=== PATIENT | male | born 1980 | race Asian ===

== ENCOUNTER 2023-01-19 16:10 | Outpatient (CLI) | payer OTHER ==
[2023-01-19 16:47] LABS: BASOPHILS % (AUTO) 0.9 % (0.0-2.0); EOSINOPHILS # (AUTO) 0.1 K/uL (0-0.4); EOSINOPHILS % (AUTO) 1.9 % (0.0-4.0); HEMATOCRIT 47.1 % (36-52); HEMOGLOBIN 15.9 g/dL (12.0-18.0); LYMPHOCYTES # (AUTO) 1.2 K/uL (2.0-11.5); LYMPHOCYTES % (AUTO) 27.3 % (20.5-51.1); MEAN CORPUSCULAR HEMOGLOBIN 31 pg (27-31); MEAN CORPUSCULAR HGB CONC 34 g/dL (33-37); MONOCYTES # (AUTO) 0.3 K/uL (0.8-1.0); MONOCYTES % (AUTO) 6.6 % (1.7-9.3); NEUTROPHILS # (AUTO) 2.7 K/uL (1.8-7.7); NEUTROPHILS % (AUTO) 63.3 % (42.2-75.2); PLATELET COUNT (AUTO) 192 K/uL (140-450); RED BLOOD CELL COUNT(AUTO) 5.06 MIL/uL (4.20-6.10); RED CELL DISTRIBUTION WIDTH 13.4 % (11.6-13.7); WHITE BLOOD COUNT (AUTO) 4.3 K/uL (4.8-10.8)
[2023-01-19 17:12] LABS: ALBUMIN 4.3 g/dL (3.4-5.0); ANION GAP 11.1 (8-16); CARBON DIOXIDE 29.9 mmol/L (21-32); CHOL/HDL RATIO 2.8 (1-4.5); CREATININE 0.9 mg/dL (0.6-1.3); TOTAL BILIRUBIN 1.3 mg/dL (0.0-1.0)
== END 2023-01-19 21:00 | disposition home or self-care (01) ==
LOC: MLB 16:10
PROVIDERS: ATTEND Family Medicine
DX: Z00.00 Encounter for general adult medical examination without abnormal findings (principal)
CPT/HCPCS: 36415; 80053; 82306; 84443; 85025

== ENCOUNTER 2023-05-04 15:26 | Outpatient (CLI) | payer OTHER ==
[2023-05-04 16:01] LABS: BASOPHILS # (AUTO) 0.1 K/uL (0.00-0.22); BASOPHILS % (AUTO) 1.1 % (0.0-2.0); EOSINOPHILS # (AUTO) 0.1 K/uL (0-0.4); EOSINOPHILS % (AUTO) 2.4 % (0.0-4.0); HEMATOCRIT 47.2 % (36-52); HEMOGLOBIN 15.7 g/dL (12.0-18.0); LYMPHOCYTES # (AUTO) 1.6 K/uL (2.0-11.5); LYMPHOCYTES % (AUTO) 31.6 % (20.5-51.1); MEAN CORPUSCULAR HEMOGLOBIN 31 pg (27-31); MEAN CORPUSCULAR HGB CONC 33 g/dL (33-37); MONOCYTES # (AUTO) 0.4 K/uL (0.8-1.0); MONOCYTES % (AUTO) 7.3 % (1.7-9.3); NEUTROPHILS % (AUTO) 57.6 % (42.2-75.2); PLATELET COUNT (AUTO) 207 K/uL (140-450); RED BLOOD CELL COUNT(AUTO) 5.02 MIL/uL (4.20-6.10); RED CELL DISTRIBUTION WIDTH 13.3 % (11.6-13.7); WHITE BLOOD COUNT (AUTO) 5.2 K/uL (4.8-10.8)
[2023-05-04 16:22] LABS: ALBUMIN 4.4 g/dL (3.4-5.0); ANION GAP 10.9 (8-16); CALCIUM 9.4 mg/dL (8.5-10.1); CARBON DIOXIDE 27.9 mmol/L (21-32); CREATININE 1.1 mg/dL (0.6-1.3); POTASSIUM 3.8 mmol/L (3.5-5.1); TOTAL BILIRUBIN 1.2 mg/dL (0.0-1.0)
== END 2023-05-04 20:35 | disposition home or self-care (01) ==
LOC: MLB 15:26
PROVIDERS: ATTEND Family Medicine
DX: E83.51 Hypocalcemia (principal); D70.9 Neutropenia, unspecified
CPT/HCPCS: 36415; 80053; 85025

== ENCOUNTER 2023-10-11 10:11 | Outpatient (CLI) | payer OTHER ==
[2023-10-11 10:41] LABS: BASOPHILS # (AUTO) 0.1 K/uL (0.00-0.22); BASOPHILS % (AUTO) 1.4 % (0.0-2.0); EOSINOPHILS # (AUTO) 0.1 K/uL (0-0.4); EOSINOPHILS % (AUTO) 2.1 % (0.0-4.0); HEMATOCRIT 45.7 % (36-52); HEMOGLOBIN 15.7 g/dL (12.0-18.0); LYMPHOCYTES # (AUTO) 1.3 K/uL (2.0-11.5); LYMPHOCYTES % (AUTO) 29.2 % (20.5-51.1); MEAN CORPUSCULAR HEMOGLOBIN 32 pg (27-31); MEAN CORPUSCULAR HGB CONC 34 g/dL (33-37); MEAN CORPUSCULAR VOLUME 94.3 fL (80-94); MONOCYTES # (AUTO) 0.4 K/uL (0.8-1.0); MONOCYTES % (AUTO) 8.4 % (1.7-9.3); NEUTROPHILS # (AUTO) 2.6 K/uL (1.8-7.7); NEUTROPHILS % (AUTO) 58.9 % (42.2-75.2); PLATELET COUNT (AUTO) 195 K/uL (140-450); RED BLOOD CELL COUNT(AUTO) 4.85 MIL/uL (4.20-6.10); RED CELL DISTRIBUTION WIDTH 13.3 % (11.6-13.7); WHITE BLOOD COUNT (AUTO) 4.4 K/uL (4.8-10.8)
[2023-10-11 11:06] LABS: ANION GAP 8.3 (8-16); CALCIUM 9.2 mg/dL (8.5-10.1); CARBON DIOXIDE 30.5 mmol/L (21-32); CHOL/HDL RATIO 2.6 (1-4.5); POTASSIUM 3.8 mmol/L (3.5-5.1); THYROID STIMULATING HORMONE 1.25 uIU/mL (0.34-3.74); TOTAL BILIRUBIN 0.6 mg/dL (0.0-1.0); TOTAL PROTEIN, SERUM 8.7 g/dL (6.4-8.2)
== END 2023-10-11 21:17 | disposition home or self-care (01) ==
LOC: MLB 10:11
PROVIDERS: ATTEND Family Medicine
DX: R63.6 Underweight (principal); E83.51 Hypocalcemia; D70.9 Neutropenia, unspecified
CPT/HCPCS: 36415; 80053; 82306; 84443; 85025

== ENCOUNTER 2023-11-03 10:39 | Outpatient (CLI) | payer OTHER ==
[2023-11-03 12:08] LABS: BASOPHILS % (AUTO) 1.1 % (0.0-2.0); EOSINOPHILS # (AUTO) 0.1 K/uL (0-0.4); EOSINOPHILS % (AUTO) 2.2 % (0.0-4.0); HEMATOCRIT 47.8 % (36-52); HEMOGLOBIN 16.2 g/dL (12.0-18.0); LYMPHOCYTES # (AUTO) 1.1 K/uL (2.0-11.5); LYMPHOCYTES % (AUTO) 29.2 % (20.5-51.1); MEAN CORPUSCULAR HEMOGLOBIN 32 pg (27-31); MEAN CORPUSCULAR HGB CONC 34 g/dL (33-37); MEAN CORPUSCULAR VOLUME 94.9 fL (80-94); MONOCYTES # (AUTO) 0.3 K/uL (0.8-1.0); MONOCYTES % (AUTO) 7.4 % (1.7-9.3); NEUTROPHILS # (AUTO) 2.3 K/uL (1.8-7.7); NEUTROPHILS % (AUTO) 60.1 % (42.2-75.2); PLATELET COUNT (AUTO) 207 K/uL (140-450); RED BLOOD CELL COUNT(AUTO) 5.04 MIL/uL (4.20-6.10); RED CELL DISTRIBUTION WIDTH 13.5 % (11.6-13.7); RETICULOCYTE COUNT 0.6 % (0.5-1.5); WHITE BLOOD COUNT (AUTO) 3.9 K/uL (4.8-10.8)
[2023-11-03 12:19] LABS: INR 1.05 (0.8-1.2); IRON, SERUM 176 ug/dl (50-175); PARTIAL THROMBOPLASTIN TIME 28.1 secs (22-35.6); TOTAL IRON BINDING CAPACITY 316 ug/dl (250-450)
[2023-11-03 12:34] LABS: ALANINE AMINOTRANSFERASE 27 U/L (12-78); ALBUMIN 4.3 g/dL (3.4-5.0); ALKALINE PHOSPHATASE 64 U/L (50-136); ANION GAP 11.6 (8-16); ASPARTATE AMINOTRANSFERASE 22 U/L (15-37); CALCIUM 8.8 mg/dL (8.5-10.1); CARBON DIOXIDE 30.7 mmol/L (21-32); CHLORIDE 102 mmol/L (98-107); CREATININE 0.9 mg/dL (0.6-1.3); GFR ARICAN-AMERICAN 118 mL/min (>90); GFR NON ARICAN-AMERICAN 98 mL/min (>90); GLUCOSE 96 mg/dL (74-106); MAGNESIUM 2.1 mg/dL (1.8-2.4); POTASSIUM 4.3 mmol/L (3.5-5.1); SODIUM SERUM 140 mmol/L (136-145); THYROID STIMULATING HORMONE 1.03 uIU/mL (0.34-3.74); TOTAL BILIRUBIN 1.2 mg/dL (0.0-1.0); TOTAL PROTEIN, SERUM 7.8 g/dL (6.4-8.2); UREA NITROGEN, BLOOD 16 mg/dL (7-18); URIC ACID 4.7 mg/dL (2.6-7.2)
[2023-11-04 18:01] LABS: ALBUMIN 3.9 g/dL (3.2-5.6); ALPHA-1-GLOBULIN 0.2 g/dL (0.1 - 0.4); PROTEIN, TOTAL, SERUM 7.7 g/dL (6.0 - 8.5)
[2023-11-04 18:02] LABS: ALPHA-2-GLOBULIN 0.7 g/dL (0.4 - 1.2); BETA GLOBULIN 1.2 g/dL (0.6 - 1.3); GAMMA GLOBULIN 1.6 g/dL (0.5 - 1.6); GLOBULIN, TOTAL 3.8 g/dL (2.0 - 4.5); M-SPIKE NOT OBSERVED (Not Observe)
[2023-11-04 18:04] LABS: HEMATOCRIT 49.6; HEPATITIS C AB NON REACTIVE (Negative); IMMUNOGLOBULIN A 273 mg/dL (70 - 400); IMMUNOGLOBULIN M 114 mg/dL (40 - 230)
[2023-11-04 18:05] LABS: ERYTHROPOIETIN 8.4
[2023-11-04 18:06] LABS: ANTI-NUCLEAR ANTIBODY,DIRECT Negative (Negative); FERRITIN 519 ng/mL (30 - 400); T4 (THYROXINE) 9.5 ug/dL (4.5 - 12.0)
== END 2023-11-03 21:09 | disposition home or self-care (01) ==
LOC: MLB 10:39
PROVIDERS: ATTEND Internal Medicine
DX: K82.8 Other specified diseases of gallbladder (principal); D72.818 Other decreased white blood cell count
CPT/HCPCS: 36415; 76700; 80053; 82607; 82668; 82728; 83540; 83735; 84165; 84436; 84443; 84550; 85025; 85045; 85610; 85651; 85730; 86038; 86140; 86430; 86702; 86804; 87340; 87522; Q0092

== ENCOUNTER 2024-01-11 09:25 | Outpatient (CLI) | payer OTHER ==
[2024-01-11 09:48] LABS: BASOPHILS % (AUTO) 0.9 % (0.0-2.0); EOSINOPHILS # (AUTO) 0.1 K/uL (0-0.4); EOSINOPHILS % (AUTO) 3.1 % (0.0-4.0); HEMATOCRIT 48.4 % (36-52); HEMOGLOBIN 16.4 g/dL (12.0-18.0); LYMPHOCYTES # (AUTO) 1.2 K/uL (2.0-11.5); LYMPHOCYTES % (AUTO) 26.5 % (20.5-51.1); MEAN CORPUSCULAR HEMOGLOBIN 32 pg (27-31); MEAN CORPUSCULAR HGB CONC 34 g/dL (33-37); MEAN CORPUSCULAR VOLUME 94.9 fL (80-94); MONOCYTES # (AUTO) 0.4 K/uL (0.8-1.0); NEUTROPHILS # (AUTO) 2.8 K/uL (1.8-7.7); NEUTROPHILS % (AUTO) 60.5 % (42.2-75.2); PLATELET COUNT (AUTO) 204 K/uL (140-450); RED CELL DISTRIBUTION WIDTH 13.1 % (11.6-13.7); WHITE BLOOD COUNT (AUTO) 4.7 K/uL (4.8-10.8)
[2024-01-11 10:14] LABS: ALBUMIN 4.4 g/dL (3.4-5.0); ANION GAP 9.5 (8-16); CALCIUM 9.1 mg/dL (8.5-10.1); CARBON DIOXIDE 31.3 mmol/L (21-32); CHOL/HDL RATIO 2.5 (1-4.5); POTASSIUM 3.8 mmol/L (3.5-5.1); TOTAL BILIRUBIN 0.9 mg/dL (0.0-1.0)
== END 2024-01-11 21:07 | disposition home or self-care (01) ==
LOC: MLB 09:25
PROVIDERS: ATTEND Family Medicine
DX: N18.2 Chronic kidney disease, stage 2 (mild) (principal); E83.51 Hypocalcemia
CPT/HCPCS: 36415; 80053; 82306; 85025